=== PATIENT | male | born 1945 | race Caucasian/White ===

== ENCOUNTER → 2017-10-25 13:43 | Outpatient (CLI) | payer MEDICARE, OTHER, SELFPAY ==
[2017-10-25 15:23] LABS: Testosterone 12.7 ng/dL (71.8-623)
== END ==
PROVIDERS: PCP Family Medicine; Visit Provider Urology
DX: C61 Malignant neoplasm of prostate (principal); Z12.5 Encounter for screening for malignant neoplasm of prostate
CPT/HCPCS: 36415; 84153; 84403

== ENCOUNTER → 2017-11-26 12:40 | Outpatient (CLI) | payer MEDICARE, OTHER, SELFPAY | PROVIDERS: Family Provider Family Medicine; PCP Family Medicine; Visit Provider Family Medicine | DX: M85.851 Other specified disorders of bone density and structure, right thigh (principal); C61 Malignant neoplasm of prostate | CPT/HCPCS: 77080 ==

== ENCOUNTER → 2017-12-09 16:06 | Outpatient (CLI) | payer MEDICARE, OTHER, SELFPAY | PROVIDERS: Family Provider Family Medicine; PCP Family Medicine; Visit Provider Family Medicine | DX: C61 Malignant neoplasm of prostate (principal) ==

== ENCOUNTER → 2017-12-14 08:10 | Outpatient (CLI) | payer MEDICARE, OTHER, SELFPAY | PROVIDERS: Family Provider Family Medicine; PCP Family Medicine; Visit Provider Family Medicine | DX: C61 Malignant neoplasm of prostate (principal) ==

== ENCOUNTER → 2017-12-20 13:29 | Outpatient (CLI) | payer MEDICARE, OTHER, SELFPAY | PROVIDERS: PCP Family Medicine; Visit Provider Family Medicine | DX: C61 Malignant neoplasm of prostate (principal) | CPT/HCPCS: 36415; 86152 ==

== ENCOUNTER → 2018-02-25 08:46 | Outpatient (CLI) | payer MEDICARE, OTHER, SELFPAY ==
[2018-02-25 10:39] LABS: Testosterone 13.9 ng/dL (71.8-623)
== END ==
PROVIDERS: Family Provider Family Medicine; PCP Family Medicine; Visit Provider Urology
DX: C61 Malignant neoplasm of prostate (principal)
CPT/HCPCS: 36415; 84153; 84403

== ENCOUNTER → 2018-04-13 11:07 | Outpatient (CLI) | payer MEDICARE, OTHER, SELFPAY ==
[2018-04-13 13:09] LABS: Prostate Specific Antigen 0.762 ng/mL (0.10-4.00)
[2018-04-13 13:12] LABS: Testosterone 11.9 ng/dL (71.8-623)
== END ==
PROVIDERS: PCP Family Medicine; Visit Provider Radiology Radiation Oncology
DX: Z85.46 Personal history of malignant neoplasm of prostate (principal)
CPT/HCPCS: 36415; 84153; 84403

== ENCOUNTER → 2018-07-02 09:12 | Outpatient (CLI) | payer MEDICARE, OTHER, SELFPAY ==
[2018-07-05 16:44] LABS: PSA Post Prostatectomy 0.56 ng/mL
[2018-07-06 03:21] LABS: Testosterone Free 1.9 pg/mL (30.0-135.0); Testosterone Total 17 ng/dL (250-1100)
== END ==
PROVIDERS: PCP Family Medicine; Visit Provider Family Medicine
DX: C61 Malignant neoplasm of prostate (principal); R97.20 Elevated prostate specific antigen [PSA]; F52.21 Male erectile disorder
CPT/HCPCS: 36415; 84153; 84402; 84403

== ENCOUNTER → 2018-08-31 09:05 | Outpatient (CLI) | payer MEDICARE, OTHER, SELFPAY ==
[2018-08-31 11:08] LABS: Prostate Specific Antigen 0.485 ng/mL (0.10-4.00)
[2018-08-31 11:11] LABS: Testosterone 23.6 ng/dL (71.8-623)
== END ==
PROVIDERS: PCP Family Medicine; Visit Provider Urology
DX: C61 Malignant neoplasm of prostate (principal)
CPT/HCPCS: 36415; 84153; 84403

== ENCOUNTER → 2019-04-20 07:56 | Outpatient (CLI) | payer MEDICARE, OTHER, SELFPAY ==
[2019-04-20 10:04] LABS: Prostate Specific Antigen 0.721 ng/mL (0.10-4.00)
[2019-04-20 10:07] LABS: Testosterone 67.4 ng/dL (71.8-623)
== END ==
PROVIDERS: Visit Provider Radiology Radiation Oncology
DX: C61 Malignant neoplasm of prostate (principal)
CPT/HCPCS: 36415; 84153; 84403

== ENCOUNTER → 2019-05-03 13:18 | Outpatient (CLI) | payer MEDICARE, OTHER, SELFPAY | PROVIDERS: Visit Provider Family Medicine | DX: M85.851 Other specified disorders of bone density and structure, right thigh (principal); C61 Malignant neoplasm of prostate; Z79.818 Long term (current) use of other agents affecting estrogen receptors and estrogen levels | CPT/HCPCS: 77080 ==

== ENCOUNTER → 2020-04-09 09:36 | Outpatient (CLI) | payer MEDICARE, OTHER, SELFPAY ==
[2020-04-09 11:21] LABS: Prostate Specific Antigen 0.451 ng/mL (0.10-4.00)
[2020-04-09 11:23] LABS: Testosterone 161 ng/dL (71.8-623)
== END ==
PROVIDERS: PCP Family Medicine; Referring Provider Radiology Radiation Oncology; Visit Provider Radiology Radiation Oncology
DX: C61 Malignant neoplasm of prostate (principal)
CPT/HCPCS: 36415; 84153; 84403

== ENCOUNTER → 2020-06-26 13:09 | Outpatient (CLI) | payer MEDICARE, OTHER, SELFPAY | PROVIDERS: PCP Family Medicine; Referring Provider Family Medicine; Visit Provider Family Medicine | DX: M85.851 Other specified disorders of bone density and structure, right thigh (principal); Z82.62 Family history of osteoporosis; Z85.46 Personal history of malignant neoplasm of prostate | CPT/HCPCS: 77080 ==

== ENCOUNTER → 2020-11-08 09:24 | Outpatient (CLI) | payer MEDICARE, OTHER, SELFPAY ==
[2020-11-08 10:51] LABS: Prostate Specific Antigen 0.987 ng/mL (0.10-4.00)
== END ==
PROVIDERS: PCP Family Medicine; Referring Provider Internal Medicine Medical Oncology; Visit Provider Internal Medicine Medical Oncology
DX: C61 Malignant neoplasm of prostate (principal)
CPT/HCPCS: 36415; 84153

== ENCOUNTER → 2020-12-23 09:18 | Outpatient (CLI) | payer MEDICARE, OTHER, SELFPAY ==
[2020-12-23 10:36] LABS: Prostate Specific Antigen 1.17 ng/mL (0.10-4.00)
== END ==
PROVIDERS: PCP Family Medicine; Referring Provider Internal Medicine Medical Oncology; Visit Provider Internal Medicine Medical Oncology
DX: C61 Malignant neoplasm of prostate (principal)
CPT/HCPCS: 36415; 84153

== ENCOUNTER → 2021-05-01 07:48 | Outpatient (CLI) | payer MEDICARE, OTHER, SELFPAY ==
--- NOTE | 2021-05-01 | DI.NM.S_ITS ---
PROCEDURE: [place] BONE SCAN WHOLE BODY RADIOPHARMACEUTICAL: 18.3 mCi Tc-99m MDP IV. INDICATIONS: MALIGNANT NEOPLASM OF PROSTATE TECHNIQUE: Delayed whole-body scintigrams were obtained approximately 3-4 hours after intravenous injection of radiotracer. Anterior and posterior views were acquired from vertex to feet. Additional left and right oblique views of the thorax and pelvis were obtained. COMPARISON: [facility], CT, CT CHEST ABD PEL W CON, 05/01/2021, 9:49. FINDINGS: Subtle increased uptake in multiple ribs bilaterally are most likely sequelae of old rib fractures. No lesions are identified in skull, sternum, clavicles, scapulae, bony pelvis, and visualized shafts of the long bones. There is low level increased uptake in cervical, thoracic and lumbar spine with distribution indistinguishable from degenerative disc and facet disease; early metastasis to spine could be obscured by degenerative changes. There are foci of increased periarticular activity involving shoulders, sternoclavicular joints, left wrist, hands, hips, SI joints, knees and feet, compatible with degenerative/arthritic changes. IMPRESSION: No scintigraphic findings to suggest osseous metastatic disease. Dictated by: Jessica Malhotra M.D. on 05/01/2021 at 16:24 Approved by: Jessica Malhotra M.D. on 05/01/2021 at 16:28
[2021-05-01 08:23] LABS: BUN Creatinine Ratio 17.3 (6-22); Blood Urea Nitrogen 13 mg/dL (9-20); Calcium 8.6 mg/dL (8.4-10.2); Carbon Dioxide 30 mmol/L (22-32); Chloride 109 mmol/L (98-107); Estimated Glomerular Filt Rate > 60.0 mL/min (>60); Glucose 120 mg/dL (80-110); HEMOLYSIS < 15 (0-50); Potassium 3.9 mmol/L (3.4-5.1); Sodium 141 mmol/L (137-145)
--- NOTE | 2021-05-01 09:41 | DI.CT.S_ITS ---
PROCEDURE: CT CHEST ABD PEL W CON INDICATIONS: MALIGNANT NEOPLASM OF PROSTATE TECHNIQUE: After the administration of oral and intravenous contrast, axial sections acquired from the supraclavicular neck to the pubic symphysis. Coronal and sagittal reformats were performed. For radiation dose reduction, the following was used: automated exposure control, adjustment of mA and/or kV according to patient size. COMPARISON: [facility], [place], BONE SCAN WHOLE BODY, 09/24/2016, 12:41. [facility], [place], ABDOMEN/PELVIS WITHOUT CONTRAS, 08/11/2016, 9:41. FINDINGS: Image quality: Excellent. CHEST: Lower Neck: No enlarged lymph nodes. Thyroid: Within normal limits. Axillae: No enlarged lymph nodes. Chest Wall: Unremarkable. Lungs and Airways: No consolidation or suspicious nodules. Pleura: No pneumothorax or pleural effusions. Heart: Heart size is normal. No pericardial effusion. Thoracic Vessels: The aorta and pulmonary arteries demonstrate normal size. Mediastinum and Vidya: No enlarged lymph nodes. Esophagus: No wall thickening. No hiatal hernia. ABDOMEN: Liver: Multiple well-circumscribed hepatic hypodensities which are mostly unchanged compared to 2017 and most consistent with benign cysts. Gallbladder: Unremarkable. Biliary ducts: Unremarkable. Pancreas: Unremarkable. Spleen: Unremarkable. Adrenal Glands: Unremarkable. Kidneys and Ureters: No solid renal mass. No hydronephrosis. Stomach and Bowel: Stomach, small bowel loops, and colon are unremarkable. The appendix is not identified. Peritoneum: No abnormal intraperitoneal fluid. No free air. Ventral Wall: No hernia. Abdominal Nodes: Left external iliac node measuring 0.9 cm, (2/110), previously not identified. Vessels: Aorta and inferior vena cava are normal in size. PELVIS: Pelvic Organs: Prostate fiducial markers are brachytherapy seeds. Bladder: Unremarkable. Pelvic Nodes: No enlarged lymph nodes. Miscellaneous: No inguinal hernias are seen. Bones: No suspicious lesion identified. Small bone island at L3 is unchanged. Anterolisthesis of L4 on L5 measuring 0.5 cm. Lipoma anterior to the right hip. IMPRESSION: 1. No definite metastatic disease. 2. Small left external iliac lymph node measuring 0.9 cm is indeterminate. 3. No new sclerotic lesions identified. Please see separately dictated nuclear medicine bone scan. Dictated by: Calvin Flores M.D. on 05/01/2021 at 11:26 Approved by: Calvin Flores M.D. on 05/01/2021 at 11:39
== END ==
PROVIDERS: PCP Family Medicine; Referring Provider Internal Medicine Medical Oncology; Visit Provider Internal Medicine Medical Oncology
DX: C61 Malignant neoplasm of prostate (principal)
CPT/HCPCS: 36415; 71260; 74177; 78306; 80048; A9503

== ENCOUNTER → 2021-06-18 15:00 | Outpatient (CLI) | payer MEDICARE, OTHER, SELFPAY ==
--- NOTE | 2021-06-18 15:07 | DI.RAD.S_ITS ---
PROCEDURE: XR KNEE RT 1TO2V INDICATIONS: Rt knee pain TECHNIQUE: 3 views of the knee were acquired. COMPARISON: None. FINDINGS: Bones: No fractures or dislocations. No suspicious bony lesions. Mild lateral compartmental joint space narrowing. Soft tissues: Moderate joint effusion. No suspicious soft tissue calcifications. IMPRESSION: Mild lateral joint space narrowing. Moderate joint effusion. Approved by: Gene Torres M.D. on 06/19/2021 at 11:46
== END ==
PROVIDERS: PCP Family Medicine; Referring Provider Family Medicine; Visit Provider Family Medicine
DX: M25.561 Pain in right knee (principal); M25.461 Effusion, right knee
CPT/HCPCS: 73560

== ENCOUNTER → 2021-06-25 11:30 | Outpatient (CLI) | payer MEDICARE, OTHER, SELFPAY ==
--- NOTE | 2021-06-25 | DI.MRI.S_ITS ---
PROCEDURE: MR KNEE RT WO CON INDICATIONS: Pain in right knee TECHNIQUE: Noncontrast sagittal PD fast spin echo and T2 fast spin echo with fat saturation, sagittal 3-D FLASH with fat saturation; coronal T1 spin echo and PD fast spin echo with fat saturation, and axial PD fast spin echo with fat saturation through the knee. COMPARISON: [facility], [place], XR KNEE RT 1TO2V, 06/18/2021, 15:02. FINDINGS: Image quality: Excellent. Menisci: Linear oblique high signal intensity traverses the medial meniscal body and posterior horn, demonstrating inferior articular surface extension, indicating oblique tearing. Lateral meniscus demonstrates linear horizontal high signal intensity within the anterior horn, demonstrating superior articular surface extension, indicating horizontal tearing. Cruciate ligaments: The anterior and posterior cruciate ligaments appear intact. Medial structures: The medial collateral ligament appears intact. Mild T2 signal elevation surrounds the medial collateral ligament. Visualized portions of the pes anserinus tendons appear normal. No abnormal bursal fluid. Lateral structures: The lateral collateral ligament, long and short heads of the biceps femoris tendon appear intact. The popliteus tendon appears normal. Iliotibial band appears normal. Anterior structures: The quadriceps and patellar tendons appear intact. Patellar alignment is normal. No femoral trochlear dysplasia or ventral trochlear prominence. No edema in the infrapatellar fat pad. Bones and cartilage: No bone marrow contusions or fractures. Mild tricompartmental periarticular osteophyte formation. Moderate articular cartilage loss diffusely overlies the weight-bearing aspects of the medial femoral condyle and medial tibial plateau. Mild articular cartilage loss diffusely overlies the weight-bearing aspects of the lateral femoral condyle and lateral tibial plateau. Mild articular cartilage loss diffusely overlies the medial and lateral patellar facets with superimposed high-grade articular cartilage loss overlying the patellar apex superiorly. Joint space: There is a small knee joint effusion. No Choudhury's cyst. Normal appearing synovial plicae are incidentally noted. IMPRESSION: 1. Medial meniscal tearing. 2. Tricompartmental osteoarthritis with associated articular cartilage loss. 3. Medial collateral ligament strain. 4. Knee joint effusion. Dictated by: Juan Benavides M.D. on 06/25/2021 at 13:26 Approved by: Juan Benavides M.D. on 06/25/2021 at 13:28
== END ==
PROVIDERS: PCP Family Medicine; Referring Provider Family Medicine; Visit Provider Family Medicine
DX: S83.241A Other tear of medial meniscus, current injury, right knee, initial encounter (principal); S83.411A Sprain of medial collateral ligament of right knee, initial encounter; M17.11 Unilateral primary osteoarthritis, right knee; M25.461 Effusion, right knee; M25.561 Pain in right knee
CPT/HCPCS: 73721

== ENCOUNTER → 2022-02-10 08:27 | Outpatient (CLI) | payer MEDICARE, OTHER, SELFPAY ==
[2022-02-10 09:25] LABS: Alanine Aminotransferase 64 IU/L (<50); Albumin 4.1 g/dL (3.5-5.0); Albumin Globulin Ratio 1.1 (1.0-2.8); Alkaline Phosphatase 75 U/L (38-126); Aspartate Aminotransferase 49 IU/L (17-59); Bilirubin Total 0.5 mg/dL (0.2-1.3); Bilirubin Unconjugated 0.5 mg/dL (0.0-1.1); Globulin 3.6 g/dL (1.7-4.1); HEMOLYSIS < 15 (0-50); Total Protein 7.7 g/dL (6.3-8.2)
== END ==
PROVIDERS: PCP Family Medicine; Referring Provider Physician Assistant; Visit Provider Physician Assistant
DX: C61 Malignant neoplasm of prostate (principal)
CPT/HCPCS: 36415; 80076

== ENCOUNTER → 2022-05-25 08:42 | Outpatient (CLI) | payer MEDICARE, OTHER, SELFPAY ==
[2022-05-25 11:47] LABS: Prostate Specific Antigen 1.95 ng/mL (0.10-4.00)
== END ==
PROVIDERS: PCP Family Medicine; Referring Provider Internal Medicine Medical Oncology; Visit Provider Internal Medicine Medical Oncology
DX: C61 Malignant neoplasm of prostate (principal)
CPT/HCPCS: 36415; 84153

== ENCOUNTER → 2022-06-03 09:11 | Outpatient (CLI) | payer MEDICARE, OTHER, SELFPAY ==
--- NOTE | 2022-06-03 | DI.NM.S_ITS ---
PROCEDURE: [place] BONE SCAN WHOLE BODY RADIOPHARMACEUTICAL: 20.3 mCi Tc-99m MDP IV. INDICATIONS: Malignant neoplasm of prostate TECHNIQUE: Delayed whole-body scintigrams were obtained approximately 3-4 hours after intravenous injection of radiotracer. Anterior and posterior views were acquired from vertex to feet. COMPARISON: [place], [place], [place] BONE SCAN WHOLE BODY, 05/01/2021, 12:35. FINDINGS: Degenerative uptake of radiotracer at the bilateral chromium clavicular and glenohumeral joints as well as the knee and ankle joints and mid feet, consistent with osteoarthritis. No increased radiotracer uptake suggestive of malignancy. Kidneys are normally positioned. IMPRESSION: No evidence of metastatic disease. Dictated by: Juan Benavides M.D. on 06/03/2022 at 14:42 Transcribed by: YULIET on 06/03/2022 at 14:43 Approved by: Juan Benavides M.D. on 06/03/2022 at 16:31
--- NOTE | 2022-06-03 | DI.CT.S_ITS ---
PROCEDURE: CT CHEST ABD PEL W CON INDICATIONS: Malignant neoplasm of prostate TECHNIQUE: After the administration of oral and intravenous contrast, axial sections acquired from the supraclavicular neck to the pubic symphysis. Coronal and sagittal reformats were performed. For radiation dose reduction, the following was used: automated exposure control, adjustment of mA and/or kV according to patient size. COMPARISON: [facility], CT, ABDOMEN/PELVIS WITHOUT CONTRAS, 08/11/2016, 9:41. [facility], CT, CT CHEST ABD PEL W CON, 05/01/2021, 9:49. FINDINGS: Image quality: Excellent. CHEST: Lower Neck: No enlarged lymph nodes. Thyroid: The visible portion of the thyroid gland is normal. Axillae: No enlarged lymph nodes. Chest Wall: No suspicious soft tissue masses. Lungs and Airways: 5 mm right middle lobe lung nodule, 3/170, stable. No new nodules or acute consolidations. Central and peripheral airways are normal. Pleura: No pneumothorax or pleural effusions. Heart: Heart size is normal. No pericardial effusion. Thoracic Vessels: The aorta and pulmonary arteries demonstrate normal size. Mediastinum and Vidya: No enlarged lymph nodes. Esophagus: No wall thickening. No hiatal hernia. ABDOMEN: Liver: Moderate hepatic steatosis. Several scattered thin-walled hypodensities, likely cysts there is fatty sparing in the gallbladder fossa Gallbladder: Normal. Biliary ducts: Nondilated. Pancreas: Normal. Spleen: Normal size. Tiny anterior margin cyst, stable. Adrenal Glands: No nodules. Kidneys and Ureters: Symmetric enhancement. No nephrolithiasis or hydronephrosis. No hydroureter. Stomach and Bowel: Stomach, small bowel loops, and colon are unremarkable. The appendix is absent. Peritoneum: No abnormal intraperitoneal fluid. No free air. Ventral Wall: No hernia. Abdominal Nodes: No retroperitoneal or mesenteric adenopathy by size criteria. Vessels: Aorta and inferior vena cava are normal in size. PELVIS: Pelvic Organs: Normal size prostate gland with three fiducial markers in place. Bladder: Partially filled with mild wall thickening. Pelvic Nodes: No enlarged lymph nodes. No change to left external iliac node. Miscellaneous: Small fat containing bilateral inguinal hernias. Intermuscular lipoma in the right proximal thigh anterior to the proximal femur. Bones: Bridging anterior osteophytes in the lower thoracic spine. L3 bone island. No new suspicious bone lesions. Grade 1 L4-5 anterolisthesis. IMPRESSION: 1. Normal size prostate gland with fiducial markers in place. 2. No evidence of metastatic disease in the chest, abdomen, or pelvis. 3. Moderate hepatic steatosis with several hepatic cysts. 4. Stable 5 mm right middle lobe nodule, benign, as it has been present since 2017. Dictated by: Kristen Madsen M.D. on 06/03/2022 at 23:18 Approved by: Kristen Madsen M.D. on 06/03/2022 at 23:34
[2022-06-03 09:56] LABS: Estimated Glomerular Filt Rate > 60 mL/min (>60)
== END ==
PROVIDERS: Radiology Diagnostic Radiology; PCP Family Medicine; Referring Provider Internal Medicine Medical Oncology; Visit Provider Internal Medicine Medical Oncology
DX: C61 Malignant neoplasm of prostate (principal); R91.1 Solitary pulmonary nodule; K76.89 Other specified diseases of liver; K76.0 Fatty (change of) liver, not elsewhere classified
CPT/HCPCS: 36415; 71260; 74177; 78306; 82565; A9503; Q9967

== ENCOUNTER → 2022-08-27 13:56 | Outpatient (CLI) | payer MEDICARE, OTHER, SELFPAY ==
[2022-08-27 15:10] LABS: Alanine Aminotransferase 82 IU/L (<50); Albumin Globulin Ratio 1.2 (1.0-2.8); Alkaline Phosphatase 85 U/L (38-126); Aspartate Aminotransferase 65 IU/L (17-59); Bilirubin Total 0.6 mg/dL (0.2-1.3); Bilirubin Unconjugated 0.5 mg/dL (0.0-1.1); Globulin 3.3 g/dL (1.7-4.1); HEMOLYSIS < 15 (0-50); Total Protein 7.3 g/dL (6.3-8.2)
== END ==
PROVIDERS: PCP Family Medicine; Referring Provider Physician Assistant; Visit Provider Physician Assistant
DX: C61 Malignant neoplasm of prostate (principal)
CPT/HCPCS: 36415; 80076

== ENCOUNTER → 2022-09-15 12:20 | Outpatient (CLI) | payer MEDICARE, OTHER, SELFPAY ==
[2022-09-15 13:43] LABS: Alanine Aminotransferase 69 IU/L (<50); Albumin Globulin Ratio 1.3 (1.0-2.8); Alkaline Phosphatase 95 U/L (38-126); Aspartate Aminotransferase 46 IU/L (17-59); BUN Creatinine Ratio 28.2 (6-22); Bilirubin Total 0.5 mg/dL (0.2-1.3); Blood Urea Nitrogen 20 mg/dL (9-20); Calcium 9.5 mg/dL (8.4-10.2); Carbon Dioxide 25 mmol/L (22-32); Chloride 108 mmol/L (98-107); Estimated Glomerular Filt Rate > 60 mL/min (>60); Globulin 3.1 g/dL (1.7-4.1); Glucose 149 mg/dL (80-110); HEMOLYSIS < 15 (0-50); Potassium 4.3 mmol/L (3.4-5.1); Sodium 141 mmol/L (137-145); Total Protein 7.1 g/dL (6.3-8.2)
== END ==
PROVIDERS: PCP Family Medicine; Referring Provider Internal Medicine Medical Oncology; Visit Provider Internal Medicine Medical Oncology
DX: C61 Malignant neoplasm of prostate (principal)
CPT/HCPCS: 36415; 80053

== ENCOUNTER → 2022-10-26 10:07 | Outpatient (CLI) | payer MEDICARE, OTHER, SELFPAY ==
--- NOTE | 2022-10-26 | DI.US.S_ITS ---
PROCEDURE: US ABDOMEN COMPLETE INDICATIONS: OTHER SPECIFIED ABNORMAL FINDINGS OF BLOOD CHEMISTRY TECHNIQUE: Real-time scanning was performed of the abdominal and retroperitoneal organs, with image documentation. COMPARISON: [facility], CT, CT CHEST ABD PEL W CON, 06/03/2022, 10:54. FINDINGS: Liver: The liver demonstrates mildly enlarged size. The liver demonstrates generalized moderately increased echogenicity. This decreases ultrasound sensitivity for detection of hepatic masses. Within the left lobe of the liver, there is an anechoic nonvascular presumes cyst seen. Gallbladder: No findings of gallstones or sludge are seen. The gallbladder wall is not thickened, measuring 3 mm or less. No specific pericholecystic fluid is seen. The sonographic Keyes sign is negative. Adjacent to the gallbladder, there is a 1.5 cm complex fluid collection seen. Biliary ducts: Intrahepatic bile ducts are non-dilated. Extrahepatic bile duct caliber measures 45 mm. Normal is 6-7 mm or less in diameter, or 10 mm or less post-cholecystectomy. Pancreas: Visualized portions of the pancreas are sonographically normal. Spleen: Spleen is normal in size and homogeneous in echotexture. The spleen is partially obscured, however. Kidneys: Kidneys are normal in size and echotexture. Right kidney measures 10.6 cm long; left kidney measures 9.8 cm long. No hydronephrosis. No solid masses. Multiple echogenic foci can be seen involving the left renal pelvis, with the largest measuring up to 6 mm. Aorta: Visualized aorta is normal in caliber at less than 3 cm. Iliacs: Proximal common iliac arteries are normal in caliber at less than 2.5 cm. IVC: Not seen. Miscellaneous: No free abdominal fluid. This study is limited by body habitus. IMPRESSION: Enlarged, fatty liver. There is a simple appearing left liver cyst. The additional liver cysts seen on CT are not seen on the current study. Normal appearing gallbladder, although there is a 1.5 cm fluid collection seen adjacent to the gallbladder itself. Apparent nonobstructing left-sided kidney stones are seen. However, no similar stones can be seen on the recent prior CT and the appearance may simply be artifactual. Dictated by: Ashwin Panchal M.D. on 10/27/2022 at 13:19 Approved by: Ashwin Panchal M.D. on 10/27/2022 at 13:21
== END ==
PROVIDERS: PCP Family Medicine; Referring Provider Family Medicine; Visit Provider Family Medicine
DX: R79.89 Other specified abnormal findings of blood chemistry (principal); K76.89 Other specified diseases of liver; K76.0 Fatty (change of) liver, not elsewhere classified
CPT/HCPCS: 76700

== ENCOUNTER 2023-04-06 07:40 | Day surgery (SDC) | payer MEDICARE, OTHER, SELFPAY ==
[2023-04-06 08:03] VITALS: BP 144/88; PULSE 88; RESP 16; TEMP 36.4; O2SAT 96; BMI 33.3
[2023-04-06] MEDS: LACTATED RINGERS 1,000 ML 42 ML IV (08:31)
--- NOTE | 2023-04-06 08:44 | PM.HP.1 ---
History of Present Illness History of Present Illness Date Patient Seen: 04/06/23 Time Patient Seen: 08:44 Chief complaint: SDC Narrative: 77-year-old man on aspirin with a history of prostate cancer and a new positive fecal immunochemical test here for diagnostic colonoscopy. Please refer to the H and P January 2023 for further detail. No interval change in health. [facility] Medical History Prostate cancer Hypertension Family History Father Prostate cancer Brother Prostate cancer Brother Prostate cancer Social History marital status: unmarried,single household members: spouse lives independently: Yes occupational status: employed Smoking Status: Never smoker alcohol intake: never substance use type: does not use Meds Home Medications and Allergies Home Medications Medication Instructions Recorded Confirmed Type amlodipine 5 mg tablet 5 mg PO DAILY 01/28/23 04/06/23 History aspirin 81 mg tablet,delayed 81 mg PO DAILY 01/28/23 04/06/23 History release calcium carbonate [Tums E-X] 2 tab PO DAILY 01/28/23 04/06/23 History darolutamide 300 mg tablet 300 mg PO BID 01/28/23 04/06/23 History leuprolide [Lupron Depot] 1 unit IM [id number] 01/28/23 04/06/23 History multivitamin 1 tab PO DAILY 01/28/23 04/06/23 History Allergies Allergy/AdvReac Type Severity Reaction Status Date / Time crab Allergy Unknown Verified 04/06/23 08:32 shellfish derived Allergy Unknown Verified 04/06/23 08:32 shrimp Allergy Unknown Verified 04/06/23 08:32 Exam Vital Signs (past 8 hours): - 04/06/23 08:03 Temperature 97.5 F L Pulse Rate 88 Respiratory Rate 16 Blood Pressure 144/88 H Pulse Oximetry 96 Oxygen Delivery Method Room Air Oxygen Delivery Method Room Air Narrative Exam Narrative: General adult man alert oriented no acute distress Chest nonlabored respiration Extremities warm well perfused Assessment & Plan Assessment and plan (1) Positive FIT (fecal immunochemical test): Status: Acute Assessment & Plan narrative: Diagnostic colonoscopy Technical details were discussed. Risks, benefits, alternatives explained. Risks including but not limited to myocardial infarction, aspiration, bleeding, pain, missed lesion, incomplete examination, need for further radiographic studies, colonic perforation, and need for major abdominal surgery were discussed. All questions were answered to their satisfaction, and they are in agreement with this plan.
[2023-04-06 09:10] VITALS: BP 115/59; PULSE 70; RESP 19; TEMP 36.2; O2SAT 95
[2023-04-06 09:15] VITALS: BP 117/67; PULSE 78; RESP 22; O2SAT 95
--- NOTE | 2023-04-06 09:16 | P.OP.COLON_ITS ---
Operative Date/Time/Diagnoses Date of procedure: 04/06/23 Time of procedure: 09:16 Pre-op diagnosis: Positive fecal immunochemical test Procedure & Clinicians Study performed: Diagnostic colonoscopy Same procedure as scheduled: Yes Indications: Positive fecal immunochemical test Surgeon: Neal Weathers Procedure Notes Procedure in detail: The history and physical was performed/updated and the patient is ASA class is 2. The procedure was discussed in detail with the patient. Potential risks complications including infection, bleeding, missed diagnosis, perforation, need for surgery, and were explained. Their questions were answered and informed consent was obtained. Patient was brought to the procedure room and placed standard monitoring equipment. The patient's vital signs were monitored continuously throughout the entire procedure. Prior to starting time-out was performed. The patient was placed in the left lateral recumbent position. Procedural sedation was administered by anesthesia. Examination began with a thorough inspection of the perianal area there was no evidence of fissures, fistulae, external hemorrhoids or cutaneous malignancy. The colonoscopy scope was then placed into the anal canal and was advanced to the cecum, which was identified by the ileocecal valve, the appendiceal orifice and the confluence of the taenia. The scope was then slowly withdrawn examining colon thoroughly in all directions, irrigating it of any residual stool. The scope was retroflexed within the rectum The patient tolerated the procedure well. They will be discharged once criteria are met. The prep was of good/excellent quality. The withdrawl time was 7 minutes. FINDINGS * Unremarkable colonoscopy. No masses polyps or active hemorrhage. Specimen(s): none sent Impression: Normal colonoscopy Post-procedure Plan for aftercare: No further colonoscopy necessary unless symptomatic Disposition: same day surgery
[2023-04-06 09:20] VITALS: BP 127/72; PULSE 72; RESP 18; O2SAT 98
[2023-04-06 09:25] VITALS: BP 127/72; PULSE 67; RESP 14; O2SAT 97
[2023-04-06 09:27] VITALS: BP 123/76; PULSE 69; RESP 18; TEMP 36.1; O2SAT 98
== END 2023-04-06 09:41 | disposition home or self-care (01) ==
PROVIDERS: PCP Family Medicine; Referring Provider Surgery; Visit Provider Surgery
PROC: 0DJD8ZZ Inspection of Lower Intestinal Tract, Via Natural or Artificial Opening Endoscopic (ICD-10-PCS; CPT 45378; principal; 2023-04-06 08:45)
DX: Z12.11 Encounter for screening for malignant neoplasm of colon (principal); R19.5 Other fecal abnormalities
CPT/HCPCS: G0121; J2704

== ENCOUNTER → 2023-04-16 07:36 | Outpatient (CLI) | payer MEDICARE, OTHER, SELFPAY ==
--- NOTE | 2023-04-16 | DI.US.S_ITS ---
PROCEDURE: US ABDOMEN COMPLETE INDICATIONS: FATTY LIVER TECHNIQUE: Real-time scanning was performed of the abdominal and retroperitoneal organs, with image documentation. COMPARISON: [facility], [place], US ABDOMEN COMPLETE, 10/26/2022, 10:14. FINDINGS: Liver: The liver is normal in size and diffusely increased in echogenicity. Multiple benign-appearing hepatic cysts are seen, the largest is located in the posterior right hepatic lobe measuring up to 2.6 cm maximum dimension. Focal fatty sparing is seen in the gallbladder fossa. Gallbladder: The gallbladder appears normal without gallstones or gallbladder wall thickening. There is no pericholecystic fluid. Sonographic Keyes sign is negative. Biliary ducts: Intrahepatic bile ducts are non-dilated. Extrahepatic bile duct caliber measures 5 mm. Normal is 6-7 mm or less in diameter, or 10 mm or less post-cholecystectomy. Pancreas: Visualized portions of the pancreas are sonographically normal. Spleen: Spleen is normal in size and homogeneous in echotexture. Kidneys: Kidneys are normal in size and echotexture. Right kidney measures 11.8 cm long; left kidney measures 10.5 cm long. No hydronephrosis or nephrolithiasis. No solid masses. Aorta: Visualized aorta is normal in caliber at less than 3 cm. Iliacs: Proximal common iliac arteries are normal in caliber at less than 2.5 cm. IVC: Intrahepatic inferior vena cava is patent. Miscellaneous: No free abdominal fluid. IMPRESSION: 1. Increased hepatic echogenicity is seen, most commonly secondary to diffuse hepatic steatosis but other sources of hepatocellular disease cannot be excluded. Recommend clinical correlation. 2. Multiple benign-appearing hepatic cysts. Approved by: Dav Alas M.D. on 04/16/2023 at 20:47
== END ==
PROVIDERS: PCP Family Medicine; Referring Provider Family Medicine; Visit Provider Family Medicine
DX: K76.0 Fatty (change of) liver, not elsewhere classified (principal); K76.89 Other specified diseases of liver; R79.89 Other specified abnormal findings of blood chemistry
CPT/HCPCS: 76700

== ENCOUNTER → 2024-06-07 07:45 | Outpatient (CLI) | payer MEDICARE, OTHER, SELFPAY ==
[2024-06-07 08:16] LABS: Add Manual Diff / Slide Review NO; Basophils Absolute Auto 100 /uL (0-100); Basophils Percent Auto 1.5 % (0-2); Eosinophils Absolute Auto 500 /uL (0-450); Eosinophils Percent Auto 6.6 % (2-4); Hemoglobin 14.1 g/dL (13.5-17.5); Lymphocytes Absolute Auto 2400 /uL (1100-4500); Lymphocytes Percent Auto 34.1 % (25-40); Mean Corpuscular HGB Conc 33.5 % (30-36); Mean Corpuscular Hemoglobin 31.6 PG (26-34); Mean Corpuscular Volume 94.5 fL (80-100); Monocytes Absolute Auto 500 /uL (0-900); Monocytes Percent Auto 7.5 % (3-14); Neutrophils Absolute Auto 3500 /uL (1500-7000); Neutrophils Percent Auto 50.3 % (50-75); Platelet Count 282 X10^3/uL (150-400); Red Blood Cell Count 4.44 X10^6/uL (4.5-5.9); Red Cell Distribution Width 13.2 % (11.6-14.8); White Blood Cell Count 6.9 X10^3/uL (4.5-11.0)
== END ==
PROVIDERS: PCP Family Medicine; Referring Provider Nurse Practitioner; Visit Provider Nurse Practitioner
DX: Z51.11 Encounter for antineoplastic chemotherapy (principal); C61 Malignant neoplasm of prostate; Z79.818 Long term (current) use of other agents affecting estrogen receptors and estrogen levels
CPT/HCPCS: 36415; 85025

== ENCOUNTER → 2024-11-30 08:02 | Outpatient (CLI) | payer MEDICARE, OTHER, SELFPAY ==
[2024-11-30 09:21] LABS: Prostate Specific Antigen 0.137 ng/mL (0.10-4.00)
== END ==
PROVIDERS: PCP Family Medicine
DX: C61 Malignant neoplasm of prostate (principal)
CPT/HCPCS: 36415; 84153

== ENCOUNTER → 2025-03-07 08:51 | Outpatient (CLI) | payer MEDICARE, OTHER, SELFPAY ==
[2025-03-07 09:17] LABS: Add Manual Diff / Slide Review NO; Hematocrit 40.7 % (41-53); Hemoglobin 14.1 g/dL (13.5-17.5); Lymphocytes Absolute Auto 2300 /uL (1100-4500); Mean Corpuscular HGB Conc 34.7 % (30-36); Mean Corpuscular Hemoglobin 32.8 PG (26-34); Mean Corpuscular Volume 94.5 fL (80-100); Platelet Count 227 X10^3/uL (150-400)
[2025-03-07 09:30] LABS: Alanine Aminotransferase 87 IU/L (<50); Albumin 4.2 g/dL (3.5-5.0); Albumin Globulin Ratio 1.3 (1.0-2.8); Alkaline Phosphatase 88 U/L (38-126); Blood Urea Nitrogen 17 mg/dL (9-20); Calcium 9.0 mg/dL (8.4-10.2); Carbon Dioxide 24 mmol/L (22-32); Chloride 108 mmol/L (98-107); Estimated Glomerular Filt Rate > 60 mL/min (>60); Globulin 3.3 g/dL (1.7-4.1); Glucose 117 mg/dL (70-99); HEMOLYSIS 49 (0-50); Potassium 4.3 mmol/L (3.4-5.1); Sodium 141 mmol/L (137-145); Total Protein 7.5 g/dL (6.3-8.2)
[2025-03-07 10:01] LABS: Prostate Specific Antigen 0.154 ng/mL (0.10-4.00)
== END ==
LOC: LAB 08:54
PROVIDERS: PCP Family Medicine; Referring Provider Internal Medicine Hematology & Oncology; Visit Provider Internal Medicine Hematology & Oncology
DX: C61 Malignant neoplasm of prostate (principal)
CPT/HCPCS: 36415; 80053; 84153; 85025